=== PATIENT | male | born 1995 | race Caucasian/White ===

== ENCOUNTER 2016-05-15 16:14 | Emergency (ER) | payer SELFPAY ==
[~2016-05-15] VITALS: Ht 185.4 cm; Wt 138.8 kg
[~2016-05-15 16:14] MED LIST: ACET-1256 PO
[2016-05-15 16:17] VITALS: TEMP 37.2; Ht 185.4 cm; Wt 138.8 kg
[2016-05-15] MEDS ORDERED: SODIUM CHLORIDE 0.9% 1000ML 2,000 ML IV STA (16:25)
[2016-05-15 17:25] LABS: BASO % 0.4 %; BASO ABS # 0.03 K/uL (0-0.2); COMPLETE YES; EOS % 3.4 %; HEMATOCRIT 44.2 % (42-52); IG% 0.7 %; LYMPH % 29.4 %; LYMPH ABS # 2.19 K/uL (1.2-3.4); MEAN CELL VOLUME 87.7 fL (80-100); MEAN CORPUSCULAR HGB CONC 34.2 g/dl (32-36); MEAN PLATELET VOLUME 10.6 fL (7.4-10.4); MONO % 6.6 %; NEUT % 59.5 %; PLATELET COUNT 199 K/uL (130-400); RED BLOOD COUNT 5.04 M/uL (4.7-6.1); WHITE BLOOD COUNT 7.46 K/uL (4.8-10.8)
[2016-05-15] MEDS ORDERED: MoRPHine SULFATE 4 MG/ML 1 ML CARP\\VIAL IV STA (17:45)
[2016-05-15 17:56] LABS: ALKALINE PHOSPHATASE 63 U/L (45-117); ALT/SGPT 77 U/L (12-78); AST/SGOT 38 U/L (15-37); BLOOD UREA NITROGEN 19 mg/dl (7-18); BUN/CREATININE RATIO 19.3 (10-20); CALCIUM 8.9 mg/dl (8.5-10.1); CARBON DIOXIDE 27 mmol/L (21-32); CHLORIDE 107 mmol/L (98-107); CREATININE 0.97 mg/dl (0.60-1.40); GLUCOSE 104 mg/dl (70-99); POTASSIUM 3.9 mmol/L (3.5-5.1); SODIUM 142 mmol/L (136-145)
[2016-05-15] MEDS ORDERED: HYDR2.5C37 TOP (18:07)
[2016-05-15 18:14] LABS: URINE APPEARANCE CLEAR (CLEAR); URINE BILIRUBIN NEG (NEG); URINE COLOR YELLOW; URINE EPITHELIAL CELL AUTO >30 /lpf (0-5); URINE NITRITE NEG (NEG); URINE PH 6.5 (4.5-7.5); URINE SPECIFIC GRAVITY 1.012 (1.000-1.030); UROBILINOGEN NEG (NEG); ZZUR CULT IF INDIC CLEAN CATCH NO
[2016-05-15 18:24] LABS: MANUAL MICROSCOPIC REQUIRED? NO; REVIEW REQ? YES
--- NOTE | 2016-05-15 18:37 | EMERGENCY ROOM VISIT NOTE ---
History Report prepared by Bernardo: Ninfa Duran Under the Supervision of: Dr. Frankie Mclain D.O. First contact with patient: 16:18 Chief Complaint: RECTAL BLEEDING Stated Complaint: RECTAL BLEED History of Present Illness The patient is a 21 year old male who presents to the Emergency Room with complaints of persistent rectal bleeding that started one week ago. The patient states that the blood is bright red in color. He is also experiencing rectal pain with bowel movements. He notes the pain is at its rectum. He is experiencing 4-5 bowel movements a day, which he states is abnormal for him. The amount of blood with each bowel movement varies, but the amount seems to have been decreasing over the past couple days. The patient denies abdominal pain, nausea, vomiting, diarrhea, and pain or burning with urination. The patient denies any history of hemorrhoids. He takes Zantac as needed for heartburn. He is able to eat and drink without difficulty. He takes no blood thinners. No other complaints. Source of History: patient Onset: one week ago Position: other (rectum) Quality: other (bright red blood) Timing: other (persistent) Associated Symptoms: No abdominal pain, No diarrhea, No nausea, No urinary symptoms (pain or burning with urination), No vomiting Note: rectal pain with bowel movements Review of Systems See HPI for pertinent positives & negatives. A total of 10 systems reviewed and were otherwise negative. Past Medical & Surgical Medical Problems: (1) Hypertension (2) No significant active problems Family History Diabetes mellitus FH: cancer FH: gallbladder disease FH: heart disease Hypertension Kidney disease Kidney stones Seizures Social History Smoking Status: Current Every Day Smoker Alcohol Use: none Marital Status: Housing Status: lives with family Current/Historical Medications Scheduled Hydrocortisone 2.5% (Rectal) (Anusol-Hc 2.5%), 1 APPLN TOP BID Allergies Coded Allergies: BEE STING (Unverified Allergy, Unknown, SWELLING, 05/15/16) Honeydew Antwan (Unverified Allergy, Unknown, THROAT SWELLING, 05/15/16) Physical Exam Vital Signs Date Time Temp Pulse Resp B/P Pulse Ox O2 Delivery O2 Flow Rate FiO2 05/15/16 17:22 106 20 140/77 97 Room Air 05/15/16 16:17 37.2 120 16 152/82 96 Room Air Physical Exam GENERAL: alert, sitting up in bed, anxious,, well appearing, well nourished, no distress, non-toxic EYE EXAM: normal conjunctiva OROPHARYNX: no exudate, no erythema, lips, buccal mucosa, and tongue normal and mucous membranes are moist NECK: supple, no nuchal rigidity, no adenopathy, non-tender LUNGS: Clear to auscultation. Normal chest wall mechanics HEART: no murmurs, S1 normal and S2 normal ABDOMEN: abdomen soft, non-tender, normo-active bowel sounds, no masses, no rebound or guarding. BACK: Back is symmetrical on inspection and there is no deformity, no midline tenderness, no CVA tenderness. SKIN: no rashes and no bruising UPPER EXTREMITIES: upper extremities are grossly normal. LOWER EXTREMITIES: No pitting edema. RECTAL: No hemorrhoids or fissures. Heme positive without gross blood or stool. Pictures show blood around stool. NEURO EXAM: Normal sensorium, cranial nerves II-XII grossly intact, normal speech, no gross weakness of arms, no gross weakness of legs. Medical Decision & Procedures Laboratory Results 05/15/16 16:33 Red Blood Count 5.04, Mean Corpuscular Volume 87.7, Mean Corpuscular Hemoglobin 30.0, Mean Corpuscular Hemoglobin Concent 34.2, Mean Platelet Volume 10.6, Neutrophils (%) (Auto) 59.5, Lymphocytes (%) (Auto) 29.4, Monocytes (%) (Auto) 6.6, Eosinophils (%) (Auto) 3.4, Basophils (%) (Auto) 0.4, Neutrophils # (Auto) 4.45, Lymphocytes # (Auto) 2.19, Monocytes # (Auto) 0.49, Eosinophils # (Auto) 0.25, Basophils # (Auto) 0.03 05/15/16 16:33 Test 05/15/16 16:33 05/15/16 18:00 White Blood Count 7.46 K/uL (4.8-10.8) Red Blood Count 5.04 M/uL (4.7-6.1) Hemoglobin 15.1 g/dL (14.0-18.0) Hematocrit 44.2 % (42-52) Mean Corpuscular Volume 87.7 fL (80-100) Mean Corpuscular Hemoglobin 30.0 pg (25-34) Mean Corpuscular Hemoglobin Concent 34.2 g/dl (32-36) Platelet Count 199 K/uL (130-400) Mean Platelet Volume 10.6 fL (7.4-10.4) Neutrophils (%) (Auto) 59.5 % Lymphocytes (%) (Auto) 29.4 % Monocytes (%) (Auto) 6.6 % Eosinophils (%) (Auto) 3.4 % Basophils (%) (Auto) 0.4 % Neutrophils # (Auto) 4.45 K/uL (1.4-6.5) Lymphocytes # (Auto) 2.19 K/uL (1.2-3.4) Monocytes # (Auto) 0.49 K/uL (0.11-0.59) Eosinophils # (Auto) 0.25 K/uL (0-0.5) Basophils # (Auto) 0.03 K/uL (0-0.2) RDW Standard Deviation 40.4 fL (36.4-46.3) RDW Coefficient of Variation 12.7 % (11.5-14.5) Immature Granulocyte % (Auto) 0.7 % Immature Granulocyte # (Auto) 0.05 K/uL (0.00-0.02) Anion Gap 8.0 mmol/L (3-11) Est Creatinine Clear Calc Drug Dose 176.3 ml/min Estimated GFR () 128.8 Estimated GFR (Non- 111.1 BUN/Creatinine Ratio 19.3 (10-20) Calcium Level 8.9 mg/dl (8.5-10.1) Total Bilirubin 0.2 mg/dl (0.2-1) Direct Bilirubin mg/dl (0-0.2) Aspartate Amino Transf (AST/SGOT) 38 U/L (15-37) Alanine Aminotransferase (ALT/SGPT) 77 U/L (12-78) Alkaline Phosphatase 63 U/L (45-117) Total Protein 7.2 gm/dl (6.4-8.2) Albumin 3.9 gm/dl (3.4-5.0) Lipase 99 U/L (73-393) Chemistry Specimen Hemolysis Urine Color YELLOW Urine Appearance CLEAR (CLEAR) Urine pH 6.5 (4.5-7.5) Urine Specific [place] 1.012 (1.000-1.030) Urine Protein NEG (NEG) Urine Glucose (UA) NEG (NEG) Urine Ketones NEG (NEG) Urine Occult Blood NEG (NEG) Urine Nitrite NEG (NEG) Urine Bilirubin NEG (NEG) Urine Urobilinogen NEG (NEG) Urine Leukocyte Esterase NEG (NEG) Laboratory results per my review. Medications Administered Medications (Trade) Dose Ordered Sig/Madonna Route Start Time Stop Time Status Last Admin Dose Admin Sodium Chloride (Nss 1000ml) 2,000 ml @ 999 mls/hr Q2H1M STAT IV 05/15/16 16:25 05/15/16 18:25 DC 05/15/16 16:47 999 MLS/HR Morphine Sulfate (MoRPHine SULFATE INJ) 4 mg NOW STAT IV 05/15/16 17:45 05/15/16 17:46 DC 05/15/16 17:50 4 MG ED Course ED COURSE: Vital signs were reviewed and showed hypertension and tachycardia. The patients medical record was reviewed The above diagnostic studies were performed and reviewed. ED treatments and interventions as stated above. 1619: The patient was evaluated in room C10. A complete history and physical examination was performed. 1625: Ordered Sodium Chloride 2000 ml @ 999 mls/hr IV 1739: I reassessed the patient. He is still experiencing some pain in his rectum. 1745: Ordered Morphine Sulfate 4 mg IV 1759: I reviewed the patient's case with Dr. Heriberto PAYNE. He recommended sending the patient home with Anusol cream since his hemoglobin hasn't dropped. He thinks that the patient's symptoms are likely hemorrhoidal in nature. He will follow-up with the patient in his office on Tuesday. 1828: Upon reevaluation, the patient is doing well. I discussed my findings with the patient and he understands and agrees with the treatment plan. Based on the patients age, coexisting illnesses, exam and lab findings the decision to treat as an outpatient was made. The patient remained stable while under my care. The patient appeared well at the time of discharge. Medical Decision Differential diagnosis includes etiologies such as diverticulosis, AVM, coagulopathy, colitis, inflammatory bowel disease, malignancy, Kaylee-Patel tear, esophagitis, peptic ulcer disease, variceal bleed, gastritis, epistaxis, fissure, hemorrhoids, as well as others were entertained. Patient is a 21-year-old male who presents the ER for bright red blood per rectum which has been present for the past week. He notes that he has been getting this with each bowel movement. He does have some pain at his rectum with each bowel movement as well. He notes that the blood has been decreasing recently. He has no insurance. Patient has no other complaints at this time. He denies any chest pain, shortness of breath, lightheadedness, dizziness or diffuse weakness. He denies any blood thinners. He does take an H2 colton. He denies a dark tarry stool/melena. CBC shows a hemoglobin of 15 along with a hematocrit of 44. This shortly would have had time to equilibrate over the past week if he was losing a large amount of blood. By the images that he showed one had a small amount of bright red blood around the stool and another had blood in the toilet which did not appear to be more than a tablespoon. Upon presentation he was tachycardic with a heart rate in the 120s. He does appear to be very anxious. CBC was unremarkable as discussed above. BMP along with LFTs, bilirubin and lipase was unremarkable. BUN was not significant elevated to suggest an upper GI bleed. There is no melanotic stools to suggest upper GI bleed. UA was negative. With his symptoms I do favor this is likely secondary to hemorrhoids since he has rectal pain with each bowel movement and then has progressively blood per rectum. With his stable hemoglobin I elected to discharge him following discussion with GI who agreed with plan of care. They recommended following up in the office on Tuesday. I explained at length for any increased bleeding he should return to the ER along with dizziness, lightheadedness or weakness. Patient was discharged with a referral to Dr. Louis's office. No signs or sources of infection. Patient was discharged with Anusol. Of note he was given a small dose of morphine and had improvement in his rectal pain. UA was negative. His abdomen had no signs of peritonitis and consequently no additional imaging was ordered and I do believe this to be a hemorrhoidal bleed. Discussed with Pt concerning signs and symptoms to watch out for. Pt was instructed to follow up with their PCP and discussed with the patient their option to return to the ED at anytime for persistent or worsening symptoms. The appropriate anticipatory guidance and out-patient management, including indications for return to the emergency department, were explained at length to the patient and understood. Consults Time Called: [phone] Consulting Physician: Dr. Louis - GI Returned Call: [phone] I reviewed the patient's case with Dr. Heriberto PAYNE. He recommended sending the patient home with Anusol cream since his hemoglobin hasn't dropped. He thinks that the patient's symptoms are likely hemorrhoidal in nature. He will follow- up with the patient in his office on Tuesday. Impression Primary Impression: Lower GI bleed Scribe Attestation The scribe's documentation has been prepared under my direction and personally reviewed by me in its entirety. I confirm that the note above accurately reflects all work, treatment, procedures, and medical decision making performed by me. Departure Information Dispostion Home / Self-Care Prescriptions Hydrocortisone 2.5% (Rectal) (ANUSOL-HC 2.5%) 2.5 % Cre 1 APPLN TOP BID for 7 Days, #30 GM 1 Refill Prov: Frankie Mclain, DO 05/15/16 Referrals No Doctor, Assigned (PCP) Forms HOME CARE DOCUMENTATION FORM, IMPORTANT VISIT INFORMATION, WORK / SCHOOL INSTRUCTIONS Patient Instructions Bleeding Rectal, My [facility] [place] [employer] Additional Instructions Please follow up with your primary care doctor or if you are a student [facility] services with in the next 24 hours. Any worsening of your symptoms, please return to the ED immediately. This includes persistent bleeding, dizziness, lightheadedness, chest pain, shortness of breath, increased rectal bleeding, dark tarry stools, or any other concerning signs or symptoms from your standpoint. Please use Anusol cream as needed for rectal pain. 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
[2016-05-15 18:54] VITALS: BP 142/89; PULSE 97; O2SAT 99
== END 2016-05-15 18:55 | disposition home or self-care (01) ==
LOC: EDBD 16:14 → C.EDC 16:15
DX: K92.2 Gastrointestinal hemorrhage, unspecified (principal); I10 Essential (primary) hypertension; F17.200 Nicotine dependence, unspecified, uncomplicated; Z91.018 Allergy to other foods; Z91.030 Bee allergy status; Z83.3 Family history of diabetes mellitus; Z80.9 Family history of malignant neoplasm, unspecified; Z82.49 Family history of ischemic heart disease and other diseases of the circulatory system; Z84.1 Family history of disorders of kidney and ureter; Z82.0 Family history of epilepsy and other diseases of the nervous system

== ENCOUNTER 2016-05-21 17:52 | Emergency (ER) | payer SELFPAY ==
[~2016-05-21] VITALS: Ht 185.4 cm; Wt 138.4 kg
[~2016-05-21 17:52] MED LIST changes: -ACET-1256 PO; +HYDR2.5C37 TOP
[2016-05-21 17:58] VITALS: TEMP 36.9; Ht 185.4 cm; Wt 138.4 kg
[2016-05-21] MEDS ORDERED: RANITAB33 PO (18:31)
--- NOTE | 2016-05-21 18:31 | DIAGNOSTIC IMAGING REPORT ---
CHEST ONE VIEW PORTABLE HISTORY: Evaluate Fever/Sepsis COMPARISON: Chest 04/23/2016. FINDINGS: The lungs are clear. Cardiac silhouette is normal in size. No pleural effusions. No pneumothorax. IMPRESSION: No acute process. Electronically signed by: Humble Hernandez M.D. 05/21/2016 6:29 PM Dictated Date/Time: 05/21/2016 6:29 PM
[2016-05-21 18:48] LABS: BASO % 0.3 %; BASO ABS # 0.02 K/uL (0-0.2); COMPLETE YES; EOS % 2.6 %; HEMATOCRIT 46.4 % (42-52); IG% 0.4 %; LYMPH % 25.4 %; LYMPH ABS # 1.92 K/uL (1.2-3.4); MEAN CELL VOLUME 87.9 fL (80-100); MEAN CORPUSCULAR HEMOGLOBIN 30.5 pg (25-34); MEAN CORPUSCULAR HGB CONC 34.7 g/dl (32-36); MEAN PLATELET VOLUME 10.6 fL (7.4-10.4); MONO % 9.6 %; NEUT % 61.7 %; PLATELET COUNT 199 K/uL (130-400); RED BLOOD COUNT 5.28 M/uL (4.7-6.1); WHITE BLOOD COUNT 7.57 K/uL (4.8-10.8)
[2016-05-21 19:20] LABS: BLOOD UREA NITROGEN 17 mg/dl (7-18); BUN/CREATININE RATIO 19.3 (10-20); CALCIUM 9.1 mg/dl (8.5-10.1); CARBON DIOXIDE 26 mmol/L (21-32); CHLORIDE 104 mmol/L (98-107); CREATININE 0.88 mg/dl (0.60-1.40); GLUCOSE 84 mg/dl (70-99); SODIUM 140 mmol/L (136-145)
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
[2016-05-21 20:18] VITALS: BP 132/86; PULSE 78; O2SAT 99
== END 2016-05-21 20:19 | disposition home or self-care (01) ==
LOC: EDBD 17:52 → C.EDC 17:53
DX: R07.89 Other chest pain (principal); R00.0 Tachycardia, unspecified; I10 Essential (primary) hypertension; F17.200 Nicotine dependence, unspecified, uncomplicated; Z91.018 Allergy to other foods; Z91.030 Bee allergy status; Z83.3 Family history of diabetes mellitus; Z80.9 Family history of malignant neoplasm, unspecified; Z83.79 Family history of other diseases of the digestive system; Z82.49 Family history of ischemic heart disease and other diseases of the circulatory system; Z84.1 Family history of disorders of kidney and ureter; Z82.0 Family history of epilepsy and other diseases of the nervous system

== ENCOUNTER 2016-07-09 12:24 | Emergency (ER) | payer SELFPAY ==
[2016-07-09 12:24] VITALS: TEMP 36.2; Ht 185.4 cm
[~2016-07-09 12:24] MED LIST changes: +RANITAB33 PO
--- NOTE | 2016-07-09 13:39 | DIAGNOSTIC IMAGING REPORT ---
LUMBAR SPINE 5 VIEWS CLINICAL HISTORY: Fall. Low back pain. FINDINGS: 5 views of the lumbar spine are compared to study dated 04/23/2016. The skeletal structures are well mineralized. There is no radiographic evidence of fracture or malalignment. Vertebral body height and alignment are maintained. The transverse and spinous processes are intact. There is no evidence of spondylolysis. The intervertebral disc spaces are well-maintained. The visualized bony pelvis appears intact. There is a nonobstructed abdominal bowel gas pattern. IMPRESSION: No acute bony abnormality is seen involving the lumbosacral spine. Electronically signed by: Kristopher Zarate M.D. 07/09/2016 1:38 PM Dictated Date/Time: 07/09/2016 1:37 PM
--- NOTE | 2016-07-09 13:47 | DIAGNOSTIC IMAGING REPORT ---
RIGHT RIBS UNILATERAL WITH PA CHEST CLINICAL HISTORY: Right rib injury following fall. COMPARISON STUDY: Chest radiograph October 19, 2016. FINDINGS: There is no pneumothorax or pleural effusion. Lungs are clear. Cardiac size is normal. Mediastinal contours are normal. No acute right rib fracture is identified by radiography. IMPRESSION: No pneumothorax. No acute right rib fractures. Electronically signed by: Rudi Hutchison M.D. 07/09/2016 1:45 PM Dictated Date/Time: 07/09/2016 1:43 PM
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
[2016-07-09 14:35] VITALS: BP 135/74; PULSE 92; O2SAT 96
--- NOTE | 2016-07-09 14:52 | EMERGENCY ROOM VISIT NOTE ---
ED Visit Note First contact with patient: 12:36 CHIEF COMPLAINT: Head and low back injury after a fall yesterday HISTORY OF PRESENT ILLNESS: Patient is a 21-year-old white male who presents Emergency Department via evaluation of back pain and head pain after a fall yesterday. He reports slipping on ice in the parking lot of a grocery store. He fell, striking his back on the edge of the curb, then struck the back of his head on a metal sign post. He did not lose consciousness, was able to get up and got back into his vehicle. He felt fine all yesterday evening. He states that when he woke up this morning, he felt increased back pain and stiffness. He also reports mild throbbing pain in the back of his head where he struck it. He essentially called the ambulance and came directly to the emergency department without trying to take any medications, nor perform any interventions for his symptoms. He is complaining more of diffuse low back pain that he rates an 8/10. It is located in the entire low back and does not radiate to her buttocks or legs. He also complains of occipital head pain, but denies a generalized headache. He reports some blurry vision due to the headache, but no lightheadedness, dizziness, nausea, vomiting, difficulty with balance, speech or coordination. He denies any neck pain. No numbness tingling or weakness into the lower extremities. No abdominal pain. He denies any anterior chest pain or shortness of breath. REVIEW OF SYSTEMS: Review of systems as per HPI. All other systems reviewed were negative. 10 systems reviewed. PMH: Electronic medical records are reviewed and summarized as above/below. See Problem List. SOCIAL HISTORY: Patient lives at home. He is unemployed. Smoker. PHYSICAL EXAM: Vital Signs: CONSTITUTIONAL: Patient is a well-appearing 21-year-old white male who is awake and alert and in no acute distress. HEENT: Normocephalic, atraumatic. Occipital scalp tenderness noted without outward signs of trauma. Pupils equal, round, reactive to light and accommodation. EOMs intact without nystagmus. Sclera are anicteric. No photophobia. Tympanic membranes intact, with normal landmarks. External canals are clear. No hemotympanum or Clemente sign. Oral and nasopharynx are clear. No CSF rhinorrhea. Mucous membranes are moist. NECK: Supple, nontender, no lymphadenopathy. Full range of motion. Subcutaneous cyst noted in the soft tissue of the right side of the posterior cervical spine. HEART: Regular rate and rhythm, with normal S1 and S2, no murmur or gallop or rub is heard. LUNGS: Breath sounds equal and clear to auscultation without wheezes, rales, or rhonchi heard. CHEST: No ecchymosis, abrasions or outward signs of trauma noted to the anterior chest wall. No sternal tenderness to palpation. Patient does have some discomfort in the right posterior lateral ribs without fracture crepitus or flail segment. SKIN: No lesions or rash, normal skin turgor. EXTREMITIES: No cyanosis, edema, joint tenderness or swelling. No deformity. NEUROLOGICAL: Alert and oriented x4. Cranial nerves 2 through 12, sensation and strength grossly intact. Gait is normal. Negative seated Romberg, and pronator drift. Finger to nose, finger to finger and rapid alternating movements are intact. Immediate, recent and remote memories are intact. Concentration is normal. ED course: The patient was seen and evaluated as above. Given the injuries sustained from the fall, head CT, rib and lumbar spine x-rays were performed. Findings are as noted below. There is no evidence for lumbar spine fracture, no rib fracture or pneumothorax, and no acute intracranial bleed or skull fracture. The patient has expected musculoskeletal soreness due to the fall. Conservative care measures were discussed. He otherwise has a benign neurologic exam, has pain where he struck his head, but is demonstrating any other neurologic deficits. Possibility of a mild concussion was discussed with the patient and head injury instructions were outlined. He was advised to use [id number] medications for his symptoms. Differential diagnoses entertained included skull fracture, acute intracranial bleed, concussion, head contusion, rib fracture, lumbar vertebral fracture, lumbar contusion, muscle strain, among others. CT OF THE HEAD WITHOUT CONTRAST CLINICAL HISTORY: Trauma. Headache. COMPARISON STUDY: Head CT September 04, 2015. CT DOSE: 687.98 mGy.cm TECHNIQUE: Helical axial images of the head were obtained without IV contrast. Automated exposure control was utilized for the study. FINDINGS: No acute intracranial hemorrhage, midline shift or mass effect is present. Ventricular system is normal. Basilar cisterns are patent. There are no extra-axial collections. Lopez-white differentiation is maintained. There is no calvarial fracture. A 1.8 cm lucent frontal bone calvarial lesion is unchanged since exam of September 04, 2015. This is likely benign given stability. There is an air-fluid level within the right sphenoid sinus. Mastoid air cells are clear. IMPRESSION: 1. No acute intracranial findings. 2. No calvarial fracture. 3. Right sphenoid sinus air-fluid level which may reflect acute sinusitis. LUMBAR SPINE 5 VIEWS CLINICAL HISTORY: Fall. Low back pain. FINDINGS: 5 views of the lumbar spine are compared to study dated 04/23/2016. The skeletal structures are well mineralized. There is no radiographic evidence of fracture or malalignment. Vertebral body height and alignment are maintained. The transverse and spinous processes are intact. There is no evidence of spondylolysis. The intervertebral disc spaces are well-maintained. The visualized bony pelvis appears intact. There is a nonobstructed abdominal bowel gas pattern. IMPRESSION: No acute bony abnormality is seen involving the lumbosacral spine. RIGHT RIBS UNILATERAL WITH PA CHEST CLINICAL HISTORY: Right rib injury following fall. COMPARISON STUDY: Chest radiograph October 19, 2016. FINDINGS: There is no pneumothorax or pleural effusion. Lungs are clear. Cardiac size is normal. Mediastinal contours are normal. No acute right rib fracture is identified by radiography. IMPRESSION: No pneumothorax. No acute right rib fractures. Problem List Medical Problems: (1) Chest wall pain Status: Resolved (2) Hypertension Status: Chronic (3) Lower GI bleed Status: Resolved (4) Nausea, vomiting, and diarrhea Status: Resolved (5) No significant active problems Status: Resolved (6) Rectal bleed Status: Resolved (7) Right ankle sprain Status: Resolved (8) Syncope Status: Resolved Current/Historical Medications No Active Prescriptions or Reported Meds Allergies Coded Allergies: BEE STING (Unverified Allergy, Unknown, SWELLING, 07/09/16) Honeydew Antwan (Unverified Allergy, Unknown, THROAT SWELLING, 07/09/16) Vital Signs Date Time Temp Pulse Resp B/P Pulse Ox O2 Delivery O2 Flow Rate FiO2 07/09/16 14:35 92 135/74 96 Room Air 07/09/16 12:24 36.2 101 16 164/91 97 Room Air Departure Information Impression Primary Impression: Closed head injury Additional Impressions: Lumbar contusion Fall Rib pain on right side Prescriptions No Active Prescriptions or Reported Meds Referrals No Doctor, Assigned (PCP) Patient Instructions My [facility] Additional Instructions Acetaminophen(Tylenol) may be used for fever or pain. Use 1000mg every six hours as needed. Avoid using more than 3000mg in a 24 hour period. This medication can be taken if you need to drive, work, or perform activities which may be dangerous when taking narcotic pain medication. Rest and avoid heavy lifting until your symptoms resolve and then gradually return to full activity. A good rule of thumb is if it hurts your back to perform a certain activity, then it should be avoided until you are healthy again. A heating pad, warm compresses, or a hot shower may help with tight muscles and can be done several times a day as needed. Continue current medications. Return to the ER immediately for any numbness, tingling, severe pain, loss of control of your bowels or bladder, inability to walk, or as needed. Follow up with your primary care physician within 3-5 days for a recheck of your current condition. Head injury instructions : Stop and stay away from ALL physical activity until you are symptom free from: Headaches Balance problems Feeling "dinged" Poor concentration Drowsy Fatigued Rest and avoid strenuous activities for the next few days. Get 8-10 hours of sleep per night. Limit activities that involve significant concentration and attention during this time to speed your recovery. This includes studying, attending school, playing video games, and heavy reading. Your brain needs to rest. Eat right and eat often. Now is the time to feed your brain. Well balanced diets that avoid high sugar foods, sodas, caffeine, etc. are better for your brain. NO ALCOHOL OR DRUGS! Avoid stimulants like caffeine, red bull, mountain dew, "energy" drinks, etc. Tylenol(acetaminophen) may be used for headaches. Use 1000mg every six hours as needed. Avoid using more than 3000mg in a 24 hour period. Avoid anti-inflammatories such as aspirin, ibuprofen, Alleve, naprosyn, Motrin, or Advil as these can interfere with blood clotting and lead to bleeding within the brain after a traumatic injury. FOLLOW UP INSTRUCTIONS: You should have a follow up with your family doctor or team physician in 3-5 days regarding your injury. If you had X-rays or CT scanning performed, our Radiologists will review the studies. If important additional findings are discovered you will be notified within 24-48 hours. Problems could arise over the next 24 to 48 hours. You should not be left alone and MUST go to the hospital immediately if you: -Have a headache that suddenly gets worse. -Are very drowsy or cannot be woken up from sleep. -Can't recognize people or places. -Have repeated vomiting. -Behave unusually, seemed confused, or start acting irritable. -Have a seizure (arms and legs start jerking uncontrollably). -Have weak or numb arms or legs. -Are unsteady on your feet -Experience slurred speech or difficulty speaking. Problem Qualifiers
== END 2016-07-09 15:11 | disposition home or self-care (01) ==
LOC: EDBD 12:24 → C.EDD 12:26
DX: S09.90XA Unspecified injury of head, initial encounter (principal); S30.0XXA Contusion of lower back and pelvis, initial encounter; R07.81 Pleurodynia; W00.0XXA Fall on same level due to ice and snow, initial encounter; Y92.481 Parking lot as the place of occurrence of the external cause; I10 Essential (primary) hypertension; F17.210 Nicotine dependence, cigarettes, uncomplicated

== ENCOUNTER 2016-12-11 19:40 | Emergency (ER) | payer OTHER ==
[~2016-12-11] VITALS: Ht 185.4 cm; Wt 136.6 kg
[2016-12-11 19:45] VITALS: TEMP 36.8; Ht 185.4 cm; Wt 136.6 kg
[2016-12-11] MEDS ORDERED: ACETAMINOPHEN 500 MG TAB PO STA (19:56)
[2016-12-11] MEDS ORDERED: SODIUM CHLORIDE 0.9% 1000ML 1,000 ML IV STA (19:56)
[2016-12-11 20:11] LABS: BASO % 0.3 %; BASO ABS # 0.02 K/uL (0-0.2); COMPLETE YES; EOS % 3.3 %; IG% 0.3 %; LYMPH % 31.2 %; LYMPH ABS # 2.18 K/uL (1.2-3.4); MEAN CORPUSCULAR HEMOGLOBIN 28.8 pg (25-34); MEAN CORPUSCULAR HGB CONC 32.8 g/dl (32-36); MONO % 5.4 %; NEUT % 59.5 %; PLATELET COUNT 213 K/uL (130-400); RED BLOOD COUNT 5.34 M/uL (4.7-6.1); WHITE BLOOD COUNT 6.98 K/uL (4.8-10.8)
--- NOTE | 2016-12-11 20:22 | EMERGENCY ROOM VISIT NOTE ---
History Report prepared by Bernardo: Emeka Araiza Under the Supervision of: Dr. Kristopher Mccarthy M.D. First contact with patient: 19:51 Chief Complaint: SYNCOPE (NEAR SYNCOPE) Stated Complaint: SYNCOPE Nursing Triage Summary: Has previous cardiac abnormalities/arrythmias? from K2 overdose 3-4 years ago. Today has not been drinking much fluids and had a syncopal episode with unresponsive episode lasting 3-4 minutes. Grandmother believes he may have stopped breathing. Pt also reports intermittent chest pressure for the past few days. Dyspnea ealier. Denies nausea or vomiting. Has dizziness. On neuro assessment: ataxia left index nose to finger, reports diplopia History of Present Illness The patient is a 21 year old male who presents to the Emergency Room with complaints of a resolved syncopal episode that occurred prior to arrival. The patient states that he was pushing his grandmother around in a wheelchair, and he developed worsening chest tightness that began a few days ago. He reports that he was told he was going to be fine, so he kept up with his activities. The patient notes that he went to the vehicle to get a blanket for his grandmother, gave it to her, and then he passed out. He states the next thing he remembered, he was on the ground and could not make faces out when he regained consciousness. The patient reports that he remembers falling, hitting the table, and his head on the ground, but he could not see it. He notes that he was passed out for 3-5 minutes, and woke up with a severe headache The patient states that he had no warning signs preceding his episode. He reports he was not dizzy or lightheaded, and he denies cough, congestion, urinating himself, having a seizure, and biting his tongue. The patient notes that his last syncopal episode was one year ago. He states that for the past few days, he could feel frequent skips in his heartbeat. The patient reports that he is borderline type II diabetic. He notes that he does not have a PCP. The patient states that a few years ago, he was required to wear a heart monitor. He denies a history of blood clots in the legs and lungs. EMS notes the patient's glucose was 153. Source of History: patient, EMS Onset: prior to arrival Position: other (global) Quality: other (syncopal episode) Timing: resolved Associated Symptoms: + LOC, + headache, No cough, No urinary symptoms Note: Denies: dizziness, lightheadedness, congestion, having a seizure, biting his tongue Review of Systems See HPI for pertinent positives & negatives. A total of 10 systems reviewed and were otherwise negative. Past Medical & Surgical Medical Problems: (1) Chest wall pain (2) Hypertension (3) Lower GI bleed (4) Nausea, vomiting, and diarrhea (5) No significant active problems (6) Rectal bleed (7) Right ankle sprain (8) Syncope Family History Diabetes mellitus FH: cancer FH: gallbladder disease FH: heart disease Hypertension Kidney disease Kidney stones Seizures Social History Smoking Status: Current Every Day Smoker Alcohol Use: none Marital Status: Housing Status: lives with family Current/Historical Medications No Active Prescriptions or Reported Meds Allergies Coded Allergies: BEE STING (Verified Allergy, Unknown, SWELLING, 12/11/16) Honeydew Antwan (Verified Allergy, Unknown, THROAT SWELLING, 12/11/16) Physical Exam Vital Signs Date Time Temp Pulse Resp B/P (MAP) Pulse Ox O2 Delivery O2 Flow Rate FiO2 12/11/16 22:37 101 18 127/63 97 12/11/16 22:10 105 18 149/89 99 Room Air 12/11/16 21:20 102 18 151/73 96 Room Air 12/11/16 19:47 Room Air 12/11/16 19:47 128 12/11/16 19:45 36.8 128 16 166/92 97 Room Air Physical Exam GENERAL: Patient is in no acute distress. HEENT: No acute trauma, normocephalic atraumatic, mucous membranes moist, no nasal congestion, no scleral icterus. No scalp hematoma or contusion. NECK: No stridor, no adenopathy, no meningismus, trachea is midline. LUNGS: Clear to auscultation bilaterally, no wheeze, no rhonchi, breath sounds equal. HEART: Tachycardic with regular rhythm, no murmur. ABDOMEN: Soft, nontender, bowel sounds positive, no hernias, no peritonitis. EXTREMITIES: No cyanosis or edema, full range of motion of all the joints without pain or difficulty, no signs for acute trauma. NEUROLOGIC: Oriented x 3, no acute motor or sensory deficits, no focal weakness. SKIN: No rash, no jaundice, no diaphoresis. Medical Decision & Procedures ER Provider Diagnostic Interpretation: X-ray results as stated below per interpretation by me and the radiologist: CHEST ONE VIEW PORTABLE CLINICAL HISTORY: Altered mental status. Weakness. COMPARISON STUDY: Chest radiograph May 21, 2016. FINDINGS: There is no pneumothorax or pleural effusion. No consolidation is identified. Pulmonary vascularity is normal. Cardiomediastinal silhouette is normal. Note is made of kyphotic positioning on this exam. IMPRESSION: No acute cardiopulmonary findings. Electronically signed by: Rudi Hutchison M.D. 12/11/2016 9:01 PM Dictated Date/Time: 12/11/2016 9:00 PM Laboratory Results 12/11/16 19:50 Red Blood Count 5.34, Mean Corpuscular Volume 88.0, Mean Corpuscular Hemoglobin 28.8, Mean Corpuscular Hemoglobin Concent 32.8, Mean Platelet Volume 11.0, Neutrophils (%) (Auto) 59.5, Lymphocytes (%) (Auto) 31.2, Monocytes (%) (Auto) 5.4, Eosinophils (%) (Auto) 3.3, Basophils (%) (Auto) 0.3, Neutrophils # (Auto) 4.15, Lymphocytes # (Auto) 2.18, Monocytes # (Auto) 0.38, Eosinophils # (Auto) 0.23, Basophils # (Auto) 0.02 12/11/16 19:50 Test 12/11/16 19:50 12/11/16 20:04 12/11/16 22:02 White Blood Count 6.98 K/uL (4.8-10.8) Red Blood Count 5.34 M/uL (4.7-6.1) Hemoglobin 15.4 g/dL (14.0-18.0) Hematocrit 47.0 % (42-52) Mean Corpuscular Volume 88.0 fL (80-100) Mean Corpuscular Hemoglobin 28.8 pg (25-34) Mean Corpuscular Hemoglobin Concent 32.8 g/dl (32-36) Platelet Count 213 K/uL (130-400) Mean Platelet Volume 11.0 fL (7.4-10.4) Neutrophils (%) (Auto) 59.5 % Lymphocytes (%) (Auto) 31.2 % Monocytes (%) (Auto) 5.4 % Eosinophils (%) (Auto) 3.3 % Basophils (%) (Auto) 0.3 % Neutrophils # (Auto) 4.15 K/uL (1.4-6.5) Lymphocytes # (Auto) 2.18 K/uL (1.2-3.4) Monocytes # (Auto) 0.38 K/uL (0.11-0.59) Eosinophils # (Auto) 0.23 K/uL (0-0.5) Basophils # (Auto) 0.02 K/uL (0-0.2) RDW Standard Deviation 43.0 fL (36.4-46.3) RDW Coefficient of Variation 13.3 % (11.5-14.5) Immature Granulocyte % (Auto) 0.3 % Immature Granulocyte # (Auto) 0.02 K/uL (0.00-0.02) Prothrombin Time 10.8 SECONDS (9.0-12.0) Prothromb Time International Ratio 1.0 (0.9-1.1) Activated Partial Thromboplast Time 26.1 SECONDS (21.0-31.0) Partial Thromboplastin Ratio 1.0 Anion Gap 8.0 mmol/L (3-11) Est Creatinine Clear Calc Drug Dose 141.3 ml/min Estimated GFR () 99.6 Estimated GFR (Non- 85.9 BUN/Creatinine Ratio 13.7 (10-20) Calcium Level 9.0 mg/dl (8.5-10.1) Magnesium Level 2.0 mg/dl (1.8-2.4) Total Bilirubin 0.3 mg/dl (0.2-1) Aspartate Amino Transf (AST/SGOT) 49 U/L (15-37) Alanine Aminotransferase (ALT/SGPT) 126 U/L (12-78) Alkaline Phosphatase 90 U/L (45-117) Total Protein 7.7 gm/dl (6.4-8.2) Albumin 4.1 gm/dl (3.4-5.0) Globulin 3.6 gm/dl (2.5-4.0) Albumin/Globulin Ratio 1.1 (0.9-2) Thyroid Stimulating Hormone (TSH) 1.220 uIu/ml (0.300-4.500) Bedside D-Dimer 163 ng/mlFEU (0-450) Bedside Troponin I < 0.030 ng/ml (0-0.045) Laboratory results reviewed by me. Medications Administered Medications (Trade) Dose Ordered Sig/Madonna Route Start Time Stop Time Status Last Admin Dose Admin Sodium Chloride 1,000 ml @ 999 mls/hr Q1H1M STAT IV 12/11/16 19:56 12/11/16 20:56 DC 12/11/16 20:26 999 MLS/HR Acetaminophen (Tylenol Tab) 1,000 mg NOW STAT PO 12/11/16 19:56 12/11/16 20:01 DC 12/11/16 20:27 1,000 MG Sodium Chloride 500 ml @ 999 mls/hr Q31M STAT IV 12/11/16 21:22 12/11/16 21:52 DC 12/11/16 21:33 999 MLS/HR ECG Indication: syncope Rate (beats per minute): 118 Rhythm: sinus tachycardia Findings: nonspecific-ST abn (diffuse), PVC ED Course 1955: The patient was evaluated in room A09B. A complete history and physical exam was performed. Ordered Tylenol Tab 1000mg PO, Sodium Chloride 1000 ml @ 999 mls/hr IV 2: Ordered Sodium Chloride 500 ml @ 999 mls/hr IV 2144: I reevaluated the patient, and he is feeling better. 3: Reevaluated the patient. Discussed results and discharge instructions: he verbalized understanding and agreement. The patient is ready for discharge. Medical Decision The patient is a 21 year old male who presents to the ED with complaints of a resolved syncopal episode. Differential diagnoses considered include dehydration, vasovagal syncope, dysrhythmia, anemia, WI, PE, electrolyte imbalance. There is no leukocytosis or concerning anemia. No significant electrolyte abnormality, kidney failure. There were a few very subtle liver enzyme elevations. There was no coagulopathy. D-dimer test was negative. With a negative d-dimer and my low suspicion for PE, I will stop the workup for this diagnosis. EKG showed a sinus tachycardia with a PVC, no acute ischemia. Cardiac enzyme testing 2 does not suggest acute cardiac injury. Chest x-ray shows no mediastinal widening, cardiomegaly or pneumothorax. The patient appeared to be in a euthyroid state. The patient received IV saline, the heart rate has decreased, he seems to be doing well. The patient has a history of this type of syncope. Nothing was found concerning by our workup. I think he can be discharged with outpatient follow- up and possibly Holter monitor testing. He was given information on how to contact the family doctor. If he is worsening, he can return. Hydration was encouraged. Impression Primary Impression: Syncope Scribe Attestation The scribe's documentation has been prepared under my direction and personally reviewed by me in its entirety. I confirm that the note above accurately reflects all work, treatment, procedures, and medical decision making performed by me. Departure Information Dispostion Home / Self-Care Prescriptions No Active Prescriptions or Reported Meds Referrals No Doctor, Assigned (PCP) Forms HOME CARE DOCUMENTATION FORM, IMPORTANT VISIT INFORMATION Patient Instructions My [facility] Additional Instructions set up fam md appt for possible cardiology referral and holter monitor lab testing and heart testing today was all ok return if worsening
[2016-12-11 20:23] LABS: POINT OF CARE TROPONIN I < 0.030 ng/ml (0-0.045)
[2016-12-11 20:30] LABS: BUN/CREATININE RATIO 13.7 (10-20); CREATININE 1.2 mg/dl (0.60-1.40); POTASSIUM 3.7 mmol/L (3.5-5.1)
[2016-12-11 20:41] LABS: ALB/GLOB RATIO 1.1 (0.9-2); THYROID STIMULATING HORMONE 1.22 uIu/ml (0.300-4.500)
[2016-12-11 20:58] LABS: PROTHROMBIN TIME (PATIENT) 10.8 SECONDS (9.0-12.0)
--- NOTE | 2016-12-11 21:03 | DIAGNOSTIC IMAGING REPORT ---
CHEST ONE VIEW PORTABLE CLINICAL HISTORY: Altered mental status. Weakness. COMPARISON STUDY: Chest radiograph May 21, 2016. FINDINGS: There is no pneumothorax or pleural effusion. No consolidation is identified. Pulmonary vascularity is normal. Cardiomediastinal silhouette is normal. Note is made of kyphotic positioning on this exam. IMPRESSION: No acute cardiopulmonary findings. Electronically signed by: Rudi Hutchison M.D. 12/11/2016 9:01 PM Dictated Date/Time: 12/11/2016 9:00 PM
[2016-12-11] MEDS ORDERED: SODIUM CHLORIDE 0.9% 500ML 500 ML IV STA (21:22)
[2016-12-11 22:37] VITALS: BP 127/63; PULSE 101; O2SAT 97
== END 2016-12-11 22:38 | disposition home or self-care (01) ==
LOC: EDBD 19:40 → C.EDA 19:45
DX: R55 Syncope and collapse (principal); I10 Essential (primary) hypertension; F17.200 Nicotine dependence, unspecified, uncomplicated; Z87.19 Personal history of other diseases of the digestive system; Z87.828 Personal history of other (healed) physical injury and trauma; Z91.018 Allergy to other foods; Z91.030 Bee allergy status; Z83.3 Family history of diabetes mellitus; Z80.9 Family history of malignant neoplasm, unspecified; Z83.79 Family history of other diseases of the digestive system; Z82.49 Family history of ischemic heart disease and other diseases of the circulatory system; Z84.1 Family history of disorders of kidney and ureter; Z82.0 Family history of epilepsy and other diseases of the nervous system

== ENCOUNTER 2017-01-31 22:32 | Emergency (ER) | payer OTHER ==
[~2017-01-31] VITALS: Ht 185.4 cm; Wt 141.2 kg
[2017-01-31 22:39] VITALS: TEMP 36.8; Ht 185.4 cm; Wt 141.2 kg
[2017-01-31 22:43] VITALS: O2SAT 98
[2017-01-31] MEDS ORDERED: ONDANSETRON INJ 2 MG/ML 2 ML VIAL IV STA (22:52)
[2017-01-31] MEDS ORDERED: PANTOprazole SOD 40 MG TAB PO STA (22:52)
[2017-01-31] MEDS ORDERED: MoRPHine SULFATE 4 MG/ML 1 ML CARP\\VIAL IV ONE (23:00)
[2017-01-31] MEDS ORDERED: SODIUM CHLORIDE 0.9% 1000ML 1,000 ML IV ONE (23:00)
[2017-01-31 23:04] LABS: BASO % 0.4 %; BASO ABS # 0.03 K/uL (0-0.2); COMPLETE YES; EOS % 3.8 %; HEMATOCRIT 45.2 % (42-52); IG% 0.2 %; LYMPH % 31.1 %; LYMPH ABS # 2.51 K/uL (1.2-3.4); MEAN CELL VOLUME 87.8 fL (80-100); MEAN CORPUSCULAR HEMOGLOBIN 30.1 pg (25-34); MEAN CORPUSCULAR HGB CONC 34.3 g/dl (32-36); MEAN PLATELET VOLUME 10.5 fL (7.4-10.4); MONO % 9.8 %; NEUT % 54.7 %; PLATELET COUNT 181 K/uL (130-400); RED BLOOD COUNT 5.15 M/uL (4.7-6.1); WHITE BLOOD COUNT 8.06 K/uL (4.8-10.8)
[2017-01-31 23:15] LABS: PARTIAL THROMBOPLASTIN RATIO 1.1; PROTHROMBIN TIME (PATIENT) 10.5 SECONDS (9.0-12.0)
[2017-01-31 23:23] LABS: BUN/CREATININE RATIO 16.2 (10-20); CALCIUM 9.1 mg/dl (8.5-10.1); CREATININE 0.94 mg/dl (0.60-1.40); MAGNESIUM 2.1 mg/dl (1.8-2.4)
[2017-01-31 23:26] LABS: ALB/GLOB RATIO 1.1 (0.9-2)
[2017-02-01] MEDS ORDERED: PANT40TA PO (01:06)
[2017-02-01 01:17] VITALS: BP 144/76; PULSE 88; O2SAT 94
--- NOTE | 2017-02-01 03:10 | EMERGENCY ROOM VISIT NOTE ---
History First contact with patient: 22:45 Chief Complaint: GI ASSESSMENT Stated Complaint: ABD PAIN/VOMIT-BLOOD Nursing Triage Summary: arrived via amb with bls with c/o one episode of vomiting blood after drinking one beer. History of Present Illness The patient is a 21 year old male who presents to the Emergency Room with complaints of epigastric abdominal pain with nausea and vomiting for the past 2 hours. The patient states that he drank beer last night, and immediately afterwards began with his symptoms. He states that he had an episode of blood in his emesis, which caused him concern. He continues to feel nauseated without persistent vomiting. He does not have fever or chills. He does have some burning discomfort in his upper abdomen. No other symptoms. He rates his discomfort a 5/10. Review of Systems More than 10 systems were reviewed and otherwise negative with the exception of history of present illness. Past Medical/Surgical History Medical Problems: (1) Chest wall pain (2) Hypertension (3) Lower GI bleed (4) Nausea, vomiting, and diarrhea (5) No significant active problems (6) Rectal bleed (7) Right ankle sprain (8) Syncope Family History Diabetes mellitus FH: cancer FH: gallbladder disease FH: heart disease Hypertension Kidney disease Kidney stones Seizures Social History Smoking Status: Current Every Day Smoker Alcohol Use: none Marital Status: Housing Status: lives with family Current/Historical Medications Scheduled Pantoprazole (Protonix), 40 MG PO DAILY Physical Exam Vital Signs Date Time Temp Pulse Resp B/P (MAP) Pulse Ox O2 Delivery O2 Flow Rate FiO2 02/01/17 01:17 88 22 144/76 94 Room Air 01/31/17 23:45 103 17 149/91 96 Room Air 01/31/17 22:53 102 01/31/17 22:43 98 Room Air 01/31/17 22:39 36.8 104 18 158/103 98 Room Air Physical Exam VITALS: Vitals are noted on the nurse's note and reviewed by myself. Vital signs stable. GENERAL: Well-developed, well-nourished, white male, who is in no acute distress and resting comfortably. Patient is cooperative with the examination. HEART: Regular rate and rhythm without murmurs gallops or rubs. LUNGS: Clear to auscultation bilaterally without wheezes, rales or rhonchi. No retractions or accessory muscle use. ABDOMEN: Positive normal bowel sounds x 4. Soft with mild epigastric tenderness on palpation. No lower abdominal tenderness. No CVA tenderness. MUSCULOSKELETAL: No muscle atrophy, erythema, or edema noted. Full range of motion without joint tenderness in all extremities. Medical Decision & Procedures ER Provider Diagnostic Interpretation: Preliminary Findings Only See Final Report For Complete Findings CT ABDOMEN & PELVIS Without Contrast: Mild hepatic steatosis. No GI or urinary tract obstruction. Normal appendix. Laboratory Results 01/31/17 22:40 Red Blood Count 5.15, Mean Corpuscular Volume 87.8, Mean Corpuscular Hemoglobin 30.1, Mean Corpuscular Hemoglobin Concent 34.3, Mean Platelet Volume 10.5, Neutrophils (%) (Auto) 54.7, Lymphocytes (%) (Auto) 31.1, Monocytes (%) (Auto) 9.8, Eosinophils (%) (Auto) 3.8, Basophils (%) (Auto) 0.4, Neutrophils # (Auto) 4.40, Lymphocytes # (Auto) 2.51, Monocytes # (Auto) 0.79, Eosinophils # (Auto) 0.31, Basophils # (Auto) 0.03 01/31/17 22:40 Test 01/31/17 22:40 01/31/17 23:06 White Blood Count 8.06 K/uL (4.8-10.8) Red Blood Count 5.15 M/uL (4.7-6.1) Hemoglobin 15.5 g/dL (14.0-18.0) Hematocrit 45.2 % (42-52) Mean Corpuscular Volume 87.8 fL (80-100) Mean Corpuscular Hemoglobin 30.1 pg (25-34) Mean Corpuscular Hemoglobin Concent 34.3 g/dl (32-36) Platelet Count 181 K/uL (130-400) Mean Platelet Volume 10.5 fL (7.4-10.4) Neutrophils (%) (Auto) 54.7 % Lymphocytes (%) (Auto) 31.1 % Monocytes (%) (Auto) 9.8 % Eosinophils (%) (Auto) 3.8 % Basophils (%) (Auto) 0.4 % Neutrophils # (Auto) 4.40 K/uL (1.4-6.5) Lymphocytes # (Auto) 2.51 K/uL (1.2-3.4) Monocytes # (Auto) 0.79 K/uL (0.11-0.59) Eosinophils # (Auto) 0.31 K/uL (0-0.5) Basophils # (Auto) 0.03 K/uL (0-0.2) RDW Standard Deviation 41.4 fL (36.4-46.3) RDW Coefficient of Variation 13.0 % (11.5-14.5) Immature Granulocyte % (Auto) 0.2 % Immature Granulocyte # (Auto) 0.02 K/uL (0.00-0.02) Prothrombin Time 10.5 SECONDS (9.0-12.0) Prothromb Time International Ratio 1.0 (0.9-1.1) Activated Partial Thromboplast Time 27.9 SECONDS (21.0-31.0) Partial Thromboplastin Ratio 1.1 Anion Gap 6.0 mmol/L (3-11) Est Creatinine Clear Calc Drug Dose 183.6 ml/min Estimated GFR () 133.8 Estimated GFR (Non- 115.4 BUN/Creatinine Ratio 16.2 (10-20) Calcium Level 9.1 mg/dl (8.5-10.1) Magnesium Level 2.1 mg/dl (1.8-2.4) Total Bilirubin 0.1 mg/dl (0.2-1) Aspartate Amino Transf (AST/SGOT) 43 U/L (15-37) Alanine Aminotransferase (ALT/SGPT) 100 U/L (12-78) Alkaline Phosphatase 92 U/L (45-117) Total Protein 7.5 gm/dl (6.4-8.2) Albumin 3.9 gm/dl (3.4-5.0) Globulin 3.6 gm/dl (2.5-4.0) Albumin/Globulin Ratio 1.1 (0.9-2) Lipase 114 U/L (73-393) Ethyl Alcohol mg/dL < 3.0 mg/dl (0-3) Medications Administered Medications (Trade) Dose Ordered Sig/Madonna Route Start Time Stop Time Status Last Admin Dose Admin Sodium Chloride 1,000 ml @ 999 mls/hr Q1H1M ONCE IV 01/31/17 23:00 02/01/17 00:00 DC 01/31/17 23:43 999 MLS/HR Ondansetron HCl (Zofran Inj) 4 mg NOW STAT IV 01/31/17 22:52 01/31/17 22:54 DC 01/31/17 23:43 4 MG Morphine Sulfate (MoRPHine SULFATE INJ) 4 mg NOW ONCE IV 01/31/17 23:00 01/31/17 23:01 DC 02/01/17 00:22 4 MG Pantoprazole Sodium (Protonix Tab) 40 mg NOW STAT PO 01/31/17 22:52 01/31/17 22:54 DC 01/31/17 23:43 40 MG ED Course Physical exam and history were performed. Nursing notes, EMR, and Medication List were personally reviewed. Patient appears to have nausea and vomiting after drinking beer this evening. He does report having some bloody emesis. The patient does not appear toxic on exam. He does have some mild epigastric tenderness. IV access was established and labs were obtained. The patient was hydrated and medicated as above. I did elect CT scan to better evaluate his symptoms. The patient's blood work is as above and was reviewed. He does not have a significantly elevated white blood cell count or gross anemia, bandemia, or significant electrolyte imbalance. Lipase and transaminases are nondiagnostic. The patient CT scan does not show acute findings. Overall the patient appears well for discharge home. He felt much better after hydration medication here in the department. I suspect he may have some esophagitis, gastritis, or possibly even a small Kaylee-Patel tear from alcohol intoxication and retching. I will give him a course of Protonix and instructions to follow with his primary care physician. He was otherwise invited back to the ER with any new, worsening, or concerning symptoms. The chart was completed utilizing [employer] Speech Voice Recognition Software. Grammatical errors, random word insertions, pronoun errors, and incomplete sentences are an occasional consequence of this system due to software limitations, ambient noise, and hardware issues. Any formal questions or concerns about the content, text, or information contained within the body of this dictation should be directly addressed to the provider for clarification. . Medical Decision Differential diagnosis: Etiologies such as appendicitis, diverticulitis, PUD, biliary pathology, UTI, pancreatitis, obstruction, mesenteric ischemia, aortic pathology, infections, inflammatory bowel disease, renal colic, as well as others were entertained. Impression Primary Impression: Nausea and vomiting Additional Impression: Epigastric abdominal pain Departure Information Dispostion Home / Self-Care Condition GOOD Prescriptions Pantoprazole (Protonix) 40 Mg Tab 40 MG PO DAILY for 14 Days, #14 TAB Prov: Rick Jaquez PA-C 02/01/17 Forms HOME CARE DOCUMENTATION FORM, IMPORTANT VISIT INFORMATION Patient Instructions My [facility] Additional Instructions You were seen and evaluated today on an emergency basis only. This is not a substitute for, or an effort to provide, complete comprehensive medical care. It is not possible to recognize and treat all injuries or illnesses in a single emergency department visit. For this reason it is recommended that you followup with your primary care physician next 2-3 days for recheck of your condition. Take Protonix 40 mg daily for the next 2 weeks. Take [id number] Zantac twice daily as directed on the packaging. Drink plenty of fluids and remain well hydrated. You are welcome to return to the emergency department anytime with new, worsening, or concerning symptoms. Problem Qualifiers
--- NOTE | 2017-02-01 07:24 | DIAGNOSTIC IMAGING REPORT ---
ABD/PELVIS NO IV OR ORAL CONT CLINICAL HISTORY: 21 years-old Male presenting with abd pain n/v after drinking alcohol. TECHNIQUE: Multidetector CT of the abdomen and pelvis was performed without the use of intravenous contrast. IV contrast: None. A dose lowering technique was used consistent with the principles of ALARA (as low as reasonably achievable). COMPARISON: None. CT DOSE (mGy.cm): The estimated cumulative dose is 1767.24 mGy.cm. 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 Lung bases: Lung bases clear. Normal heart size. No pericardial or pleural effusion. Gynecomastia. Liver: Normal morphology. Density consistent with hepatic steatosis. Biliary: No gross biliary ductal dilatation allowing for noncontrast technique. Normal gallbladder. Pancreas: Normal noncontrast appearance. Spleen: Normal noncontrast appearance. Adrenal glands: Normal noncontrast appearance. Kidneys and ureters: Normal noncontrast appearance. No hydronephrosis. Bladder: Normal. Pelvic organs: Prostate and seminal vesicles normal. Bowel: Normal appendix. No bowel obstruction. Peritoneal cavity: No free fluid or intraperitoneal gas. Lymph nodes: No gross lymphadenopathy allowing for noncontrast technique. Vasculature: Normal noncontrast appearance. Abdominal wall: Normal. Musculoskeletal: Normal. IMPRESSION: 1. No acute intra-abdominal pathology. 2. Hepatic steatosis. Correlate with liver function tests to exclude steatohepatitis, which can be a cause for abdominal pain. Electronically signed by: Quincy Serna M.D. 02/01/2017 7:22 AM Dictated Date/Time: 02/01/2017 7:18 AM
== END 2017-02-01 01:20 | disposition home or self-care (01) ==
LOC: EDBD 22:32 → C.EDA 22:35
DX: R11.2 Nausea with vomiting, unspecified (principal); R10.13 Epigastric pain; I10 Essential (primary) hypertension; F17.200 Nicotine dependence, unspecified, uncomplicated; Z83.3 Family history of diabetes mellitus; Z82.49 Family history of ischemic heart disease and other diseases of the circulatory system; Z84.1 Family history of disorders of kidney and ureter; Z82.0 Family history of epilepsy and other diseases of the nervous system

== ENCOUNTER 2017-03-18 20:15 | Emergency (ER) | payer OTHER ==
[~2017-03-18] VITALS: Ht 188 cm; Wt 138.8 kg
[2017-03-18 20:23] VITALS: TEMP 36.9; Ht 188 cm; Wt 138.8 kg
--- NOTE | 2017-03-18 21:21 | EMERGENCY ROOM VISIT NOTE ---
ED Visit Note First contact with patient: 21:02 CHIEF COMPLAINT: "Lump on the back of my neck x years" HISTORY OF PRESENT ILLNESS: Patient is a 22-year-old white male who presents to the emergency department for evaluation of a "lump" on the back of his neck. It has been present for several years. It is located on the right hand side. He states it started out small and was pea-sized, but has become the size of a large grape. He was without health insurance for some time, and recently got his insurance back which prompted him to come to the emergency department tonight to have the area evaluated. He notes that it is tender on occasion and sometimes when he moves his neck. He denies any redness, warmth or drainage from the area. 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 This was done while he was living in [place]. REVIEW OF SYSTEMS: Review of systems as per HPI. All other systems reviewed were negative. At least 6 systems reviewed. PMH: Electronic medical records are reviewed and summarized as above/below. See Problem List. He believes that his tetanus vaccination is up-to-date. SOCIAL HISTORY: Patient lives at home. Smoker. He is unemployed. PHYSICAL EXAM: Vital Signs: Reviewed Nurse's notes. CONSTITUTIONAL: Patient is a well-appearing 22-year-old white male who is awake and alert and in no acute distress. INTEGUMENTARY: Examination of the posterior aspect of the patient's neck/C-spine region note a mobile, and nontender soft tissue lesion to the right of the cervical spinous processes. It measures roughly 2-3 cm in length. There is no erythema, increased warmth or induration. No fluctuance, pointing or drainage. No lymphadenopathy is appreciated. EMERGENCY DEPARTMENT COURSE: The patient has a small, benign appearing soft tissue lesion on the back of the right side of his neck. It has been present for several years and slowly progressing in size. There are no signs of infection at this time. The differential diagnoses include sebaceous cyst, lipoma, reactive lymph node seems less likely. Certainly does not have any characteristics that are worrisome for a latency. Given lack of infectious findings it was not felt that any further workup or intervention was indicated at this time. He was referred to general surgery or plastic surgery for evaluation and excision of the soft tissue mass. He reports that he would like to establish primary care with [facility]. He did not need any assistance with this. Medication reconciliation: I attest that I have personally reviewed the patient' s current medication list. Blood pressure screening: Patient was found to have an elevated blood pressure and was referred to their primary doctor for recheck and further treatment. Problem List Medical Problems: (1) Chest wall pain Status: Resolved (2) Closed head injury Status: Resolved (3) Epigastric abdominal pain Status: Resolved (4) Epigastric abdominal pain Status: Resolved (5) Fall Status: Resolved (6) Hyperglycemia Status: Chronic (7) Hypertension Status: Chronic (8) Lower GI bleed Status: Resolved (9) Lumbar contusion Status: Resolved (10) Nausea and vomiting Status: Resolved (11) Nausea and vomiting Status: Resolved (12) Nausea, vomiting, and diarrhea Status: Resolved (13) No significant active problems Status: Resolved (14) Rectal bleed Status: Resolved (15) Rib pain on right side Status: Resolved (16) Right ankle sprain Status: Resolved (17) Syncope Status: Resolved Allergies Coded Allergies: BEE STING (Verified Allergy, Unknown, SWELLING, 12/11/16) Honeydew Antwan (Verified Allergy, Unknown, THROAT SWELLING, 12/11/16) Vital Signs Date Time Temp Pulse Resp B/P (MAP) Pulse Ox O2 Delivery O2 Flow Rate FiO2 03/18/17 21:31 78 20 134/72 98 03/18/17 20:23 36.9 108 16 164/103 96 Room Air Departure Information Impression Primary Impression: Cyst of soft tissue Referrals No Doctor, Assigned (PCP) Jackson Stroud, Carmina Ramires MD Patient Instructions My [facility] Additional Instructions Establish care with your primary care physician so that you can be referred to plastic surgery or general surgery to have the soft tissue lesion evaluated. Return to the emergency department as needed.
[2017-03-18 21:31] VITALS: BP 134/72; PULSE 78; O2SAT 98
== END 2017-03-18 21:32 | disposition home or self-care (01) ==
LOC: C.EDB 20:17 → C.EDD 21:32
DX: L72.9 Follicular cyst of the skin and subcutaneous tissue, unspecified (principal); I10 Essential (primary) hypertension; F17.200 Nicotine dependence, unspecified, uncomplicated; Z87.828 Personal history of other (healed) physical injury and trauma; Z91.81 History of falling; Z91.030 Bee allergy status

== ENCOUNTER 2017-03-20 17:54 | Emergency (ER) | payer SELFPAY ==
[~2017-03-20] VITALS: Ht 185.4 cm; Wt 140.0 kg
[2017-03-20 18:04] VITALS: TEMP 36.6; Ht 185.4 cm; Wt 140.0 kg
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
[2017-03-20 18:35] LABS: BASO % 0.2 %; BASO ABS # 0.02 K/uL (0-0.2); COMPLETE YES; EOS % 2.3 %; HEMATOCRIT 44.9 % (42-52); IG% 0.3 %; LYMPH % 19.5 %; MEAN CELL VOLUME 89.6 fL (80-100); MEAN CORPUSCULAR HEMOGLOBIN 30.5 pg (25-34); MEAN CORPUSCULAR HGB CONC 34.1 g/dl (32-36); MEAN PLATELET VOLUME 10.7 fL (7.4-10.4); MONO % 7.2 %; NEUT % 70.5 %; PLATELET COUNT 205 K/uL (130-400); RED BLOOD COUNT 5.01 M/uL (4.7-6.1); WHITE BLOOD COUNT 9.25 K/uL (4.8-10.8)
[2017-03-20 18:54] LABS: ALT/SGPT 90 U/L (12-78); AST/SGOT 41 U/L (15-37); BLOOD UREA NITROGEN 10 mg/dl (7-18); BUN/CREATININE RATIO 10.2 (10-20); CALCIUM 8.2 mg/dl (8.5-10.1); CARBON DIOXIDE 24 mmol/L (21-32); CHLORIDE 105 mmol/L (98-107); CREATININE 0.99 mg/dl (0.60-1.40); GLUCOSE 197 mg/dl (70-99); POTASSIUM 3.6 mmol/L (3.5-5.1); SODIUM 139 mmol/L (136-145)
[2017-03-20 18:55] LABS: BENZODIAZEPINE, URINE NEG (NEG); COCAINE,URINE NEG (NEG); PHENCYCLIDINE, URINE NEG (NEG)
[2017-03-20 18:56] LABS: ALKALINE PHOSPHATASE 73 U/L (45-117)
[2017-03-20 19:00] LABS: ACETAMINOPHEN < 2 ug/ml (10-30)
[2017-03-20] MEDS ORDERED: IBUP-1050 PO (19:19)
[2017-03-21 02:05] VITALS: BP 148/70; PULSE 80; O2SAT 98
== END 2017-03-21 02:05 ==
LOC: EDBD 17:54 → C.EDA 17:57
DX: F32.9 Major depressive disorder, single episode, unspecified (principal); R45.851 Suicidal ideations; F41.9 Anxiety disorder, unspecified; F17.200 Nicotine dependence, unspecified, uncomplicated; Z91.5 Personal history of self-harm; Z91.81 History of falling; Z83.3 Family history of diabetes mellitus; Z82.49 Family history of ischemic heart disease and other diseases of the circulatory system; Z84.1 Family history of disorders of kidney and ureter; Z82.0 Family history of epilepsy and other diseases of the nervous system